=== PATIENT | female | born 1960 | race Caucasian/White ===

== ENCOUNTER 2017-02-21 10:04 | Emergency (ER) | payer SELFPAY ==
[~2017-02-21] VITALS: Ht 157.5 cm; Wt 57.0 kg
[~2017-02-21 10:04] MED LIST: PENI500T PO; TYLE3 PO; Z.0.NO CURRENT MEDS
[2017-02-21 10:06] VITALS: BP 130/69; PULSE 62; RESP 14; TEMP 99.1; O2SAT 100
--- NOTE | 2017-02-21 10:23 | PD ---
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 History of rotator cuff injury. Denies paresthesias, loss to the affected extremity. Reports decreased range of motion secondary to pain. Denies fever, vomiting. Been taking Tylenol for symptom management. Rates pain 7/10. Describes it as an aching, throbbing sensation. Worse with movement. Better while at rest. Denies significant past medical history. No primary care provider no known allergies. Has no other medical complaints. No other modifying factors or associated signs and symptoms. PFSH Past Medical History Depression: Yes Diminished Hearing: No Musculoskeletal: Yes (hx of shoulder injury) ?: Not Menopausal: Yes Past Surgical History Section: Yes Tonsillectomy: Yes Social History Alcohol Use: No Tobacco Use: No Substance Use: No Allergies-Medications (Allergen,Severity, Reaction): Coded Allergies: No Known Allergies (Verified Adverse Reaction, Unknown, 02/21/17) Reported Meds & Prescriptions Reported Meds & Active Scripts Active Ibuprofen 800 Mg Tab 800 Mg PO Q6HR PRN Robaxin (Methocarbamol) 500 Mg Tab 500 Mg PO QID PRN Review of Systems Except as stated in HPI: all other systems reviewed are Neg Physical Exam Narrative GENERAL: Well-nourished, well-developed patient, in no acute distress SKIN: Warm and dry. HEAD: Atraumatic. Normocephalic. EYES: Pupils equal and round. No scleral icterus. No injection or drainage. ENT: Mucosa pink and moist. Airway patent. NECK: Supple. Trachea midline. CARDIOVASCULAR: Regular rate. RESPIRATORY: No accessory muscle use. GASTROINTESTINAL: Flat. MUSCULOSKELETAL: No obvious deformities. No clubbing. No cyanosis. No edema. Right shoulder with limited range of motion; with approximately 45 abduction; right shoulder with no obvious deformities; shoulders equal; without erythema, edema, ecchymosis; with tenderness on palpation to the posterior, anterior aspect; decreased digital art director strength Right upper extremity supple and non-tense. 2 + radial pulse and sensory intact. NEUROLOGICAL: Awake and alert. Oriented 3. No obvious cranial nerve deficits. Motor grossly within normal limits. Normal speech. PSYCHIATRIC: Appropriate mood and affect; insight and judgment normal. Data Data Last Documented VS Vital Signs Date Time Temp Pulse Resp B/P (MAP) Pulse Ox O2 Delivery O2 Flow Rate FiO2 02/21/17 10:06 99.1 62 14 130/69 (89) 100 Room Air Orders Orders Ketorolac Inj (Toradol Inj) (02/21/17 10:30) Orphenadrine Inj (Norflex Inj) (02/21/17 10:30) Shoulder, Complete (>2vws) (02/21/17 10:19) [facility] Medical Decision Making Medical Screen Exam Complete: Yes Emergency Medical Condition: Yes Medical Record Reviewed: Yes Differential Diagnosis Shoulder strain, rotator cuff tear, ligament tear Narrative Course 56-year-old female with right shoulder injury. History of rotator cuff injury. Toradol and Norflex administered in the ER. Right shoulder x-ray ordered. 1109: Right shoulder x-ray with no acute findings. Discussed x-ray findings with a shunt. Arm sling provided for support. Instructed patient to follow up with orthopedic surgeon as needed. Instructed patient to follow up with primary care provider. Patient verbalizes understanding and agreement with treatment plan. Patient is medically cleared and stable for discharge. Discussed reasons to return to the emergency department. Patient agrees with treatment plan. The patients vital signs are stable and the patient is stable for outpatient follow-up and treatment. Patient discharged home, stable and in no acute distress. Diagnosis Primary Impression: Sprain of shoulder, right Qualified Codes: S43.401A - Unspecified sprain of right shoulder joint, initial encounter Referrals: [facility] Orthopaedic Surgeon Primary Care Physician Patient Instructions: General Instructions, Shoulder Sprain (ED) Additional Instructions: Tylenol or ibuprofen as needed and as directed to reduce pain and inflammation Rest, ice, and compress extremity to decrease pain and inflammation Arm sling for support; do not rely on the arm sling; remove arm sling frequently and move the shoulder joint to avoid frozen shoulder Avoid aggravating activity; increase activity as tolerated Follow-up with primary care provider Follow-up with orthopedic surgeon as needed Return to the emergency department immediately with worsening symptoms Med/Other Pt SpecificInfo: Prescription(s) given Scripts Ibuprofen (Ibuprofen) 800 Mg Tab 800 MG PO Q6HR Y for PAIN, #30 TAB 0 Refills Prov: Lien Salinas 02/21/17 Methocarbamol (Robaxin) 500 Mg Tab 500 MG PO QID Y for MUSCLE SPASM, #30 TAB 0 Refills Prov: Lien Salinas 02/21/17 Disposition: 01 DISCHARGE HOME Condition: Stable Lien Salinas Feb 21, 2017 10:23
[2017-02-21] MEDS ORDERED: KETOROLAC TROMETHAMINE 60 MG/2 ML (IM) VIAL IM ONE (10:30)
[2017-02-21] MEDS ORDERED: ORPHENADRINE INJ 60 MG/2 ML AMP IM ONE (10:30)
[2017-02-21] MEDS ORDERED: IBUP1TAB7 PO (10:37)
[2017-02-21] MEDS ORDERED: ROBA500T PO (10:37)
--- NOTE | 2017-02-21 11:02 | RADRPT ---
EXAM DATE/TIME: 02/21/2017 10:35 [facility] COMPARISON: No previous studies available for comparison. INDICATIONS : Right shoulder pain for one week. Patient states she pulled on something injuring her shoulder. MEDICAL HISTORY : Right rotator cuff injury. SURGICAL HISTORY : None. ENCOUNTER: Initial ACUITY: 1 day PAIN SCORE: 6/10 LOCATION: Right shoulder. FINDINGS: Multiple view examination of the right shoulder demonstrates no evidence of fracture or dislocation. The glenohumeral and acromioclavicular joints are maintained. There is minimal hypertrophic change of the distal clavicle. There is normal range of motion between internal and external rotation. Bony mineralization is normal. CONCLUSION: No acute disease. Marin Nguyen MD on February 21, 2017 at 11:00 Board Certified Radiologist. This report was verified electronically.
== END 2017-02-21 11:42 | disposition home or self-care (01) ==
LOC: NEPD 10:04
DX: S43.401A Unspecified sprain of right shoulder joint, initial encounter (principal); F32.9 Major depressive disorder, single episode, unspecified; X50.9XXA Other and unspecified overexertion or strenuous movements or postures, initial encounter
CPT/HCPCS: 73030; 96372; 99284; J1885; J2360

== ENCOUNTER 2017-04-04 11:26 | Emergency (ER) | payer SELFPAY ==
[~2017-04-04] VITALS: Ht 157.5 cm; Wt 60.0 kg
[~2017-04-04 11:26] MED LIST changes: +IBUP1TAB7 PO; -PENI500T PO; +ROBA500T PO; -TYLE3 PO; -Z.0.NO CURRENT MEDS
[2017-04-04 11:27] VITALS: BP 158/70; PULSE 97; RESP 14; TEMP 98.4; O2SAT 97
[2017-04-04] MEDS ORDERED: KETOROLAC TROMETHAMINE 60 MG/2 ML (IM) VIAL IM ONE (12:00)
--- NOTE | 2017-04-04 12:08 | RADRPT ---
EXAM DATE/TIME: 04/04/2017 12:00 [facility] COMPARISON: No previous studies available for comparison. INDICATIONS : Right upper anterior chest pain, denies injury MEDICAL HISTORY : None. SURGICAL HISTORY : None. ENCOUNTER: Initial ACUITY: 1 month PAIN SCORE: 10/10 LOCATION: Right chest FINDINGS: A single view of the chest demonstrates the lungs to be symmetrically aerated without evidence of mas s, infiltrate or effusion. The cardiomediastinal contours are unremarkable. Osseous structures are intact. CONCLUSION: No acute disease. Charanjit Quiroga MD on April 04, 2017 at 12:05 Board Certified Radiologist. This report was verified electronically.
--- NOTE | 2017-04-04 12:17 | PD ---
HPI Chief Complaint: Pain: Acute or Chronic Time Seen by Provider: 11:42 Travel History International Travel<30 days: No Contact w/Intl Traveler<30days: No Traveled to known affect area: No History of Present Illness HPI 56-year-old female that presents to the ED for evaluation of pain on the right shoulder and breast with swelling of the chest. Per patient she is concerned because she does have a family history of breast cancer and bone cancer in the family. She is concerned that she may be having the same. Patient suffered an injury about a month ago or change in her right shoulder. She was evaluated and she states that she reinjured about a week ago. 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 Per patient she' s not been able to see anybody for this. Per patient she started to get concerned because she started developing swelling and pain on the right side of the chest and her right breast is greater than the left. She is not sure this is related to her to take as she does have a history of a tooth infection that she is supposed to have a root canal but she has not had it done secondary to insurance issues. Denies any abdominal pain. No urinary or bowel movement issues. Pain per patient is 7 out of 10. Has not seen anybody for this. Has not had a mammogram. No allergies to medication. PFSH Past Medical History Depression: Yes Diminished Hearing: No Musculoskeletal: Yes (hx of shoulder injury) ?: Not Menopausal: Yes Past Surgical History Section: Yes Tonsillectomy: Yes Social History Alcohol Use: No Tobacco Use: No Substance Use: No Allergies-Medications (Allergen,Severity, Reaction): Coded Allergies: No Known Allergies (Verified Adverse Reaction, Unknown, 02/21/17) Reported Meds & Prescriptions Reported Meds & Active Scripts Active Diclofenac Sodium DR (Diclofenac Sodium) 75 Mg Tabdr 75 Mg PO BID PRN Ibuprofen 800 Mg Tab 800 Mg PO Q6HR PRN Robaxin (Methocarbamol) 500 Mg Tab 500 Mg PO QID PRN Review of Systems Except as stated in HPI: all other systems reviewed are Neg Physical Exam Narrative GENERAL: SKIN: Warm and dry. Breast exam: The with female nurse present. Patient does appear to have large her right breast on the left. Patient appears to have a small pustule-like lesion to the 9:00 area of the breast. Some induration is noted in the breast that appear to be small and mobile. Mainly around the area of the areola. Some lymphadenopathy noted on the right axilla. No obvious deformity or masses noted on the left breast. HEAD: Atraumatic. Normocephalic. EYES: Pupils equal and round. No scleral icterus. No injection or drainage. ENT: No nasal bleeding or discharge. Mucous membranes pink and moist. Dental: Patient has bad dentition not ago. She does not appear to have any signs of abscesses. She does have a cavity to the right upper second molar which is tender with touch but no sign of induration. NECK: Trachea midline. No JVD. CARDIOVASCULAR: Regular rate and rhythm. RESPIRATORY: No accessory muscle use. Clear to auscultation. Breath sounds equal bilaterally. GASTROINTESTINAL: Abdomen soft, non-tender, nondistended. Hepatic and splenic margins not palpable. MUSCULOSKELETAL: Extremities without clubbing, cyanosis, or edema. No obvious deformities. Pain with range of motion of the shoulder especially with internal and external rotation. Pain with abduction. Patient does have reproducible pain on the right clavicle where patient does appear to have slight soft tissue swelling. No erythema. No masses. NEUROLOGICAL: Awake and alert. No obvious cranial nerve deficits. Motor grossly within normal limits. Five out of 5 muscle strength in the arms and legs. Normal speech. PSYCHIATRIC: Appropriate mood and affect; insight and judgment normal. Data Data Last Documented VS Vital Signs Date Time Temp Pulse Resp B/P (MAP) Pulse Ox O2 Delivery O2 Flow Rate FiO2 04/04/17 11:48 85 18 04/04/17 11:27 98.4 158/70 (99) 97 Orders Orders Chest, Single Ap (04/04/17 11:48) Us Breast Unilateral (04/04/17 ) Ketorolac Inj (Toradol Inj) (04/04/17 12:00) Mandatory Outpatient Referral (04/04/17 13:36) Ed Discharge Order (04/04/17 13:37) [facility] Medical Decision Making Medical Screen Exam Complete: Yes Emergency Medical Condition: Yes Medical Record Reviewed: Yes Interpretation(s) Last Impressions Chest X-Ray 04/04/17 1148 Signed Impressions: Service Date/Time: Tuesday, April 04, 2017 12:00 - CONCLUSION: No acute disease. Charanjit Quiroga MD US negative Differential Diagnosis Chest pain versus breast mass versus chronic pain versus to date versus dentalgia versus muscle strain Narrative Course 56-year-old female that presents to the ED for evaluation of right-sided chest discomfort and swelling. Patient was properly examined and was found to have signs and symptoms of unclear etiology. Does appear to be more muscular in nature especially with a reinjury of the right shoulder. She does have some findings on her right breast which are unclear as to their significance. Patient does have a family history of breast cancer. Chest x-ray and ultrasound will be done to any sign of acute disease requiring emergent treatment. Patient agrees to proceed. Imaging showed no sign of acute disease. Patient was reassured. At this time the recommendation is for outpatient mammogram for better evaluated her breasts complaint. I do not see anything at this time that appears to be causing the symptoms. Patient likely has muscle scleral injury. We'll prescribe patient diclofenac sodium for pain. She was given a mandatory referral to the breast navigator to hopefully get a mammogram.. My attending Dr Robins evaluated patient and agrees with plan. F/u with PCP. See ED if worsening symptoms. On regards to dental complain will treat with amoxicillin to cover for infection and told to follow up with dentist. Diagnosis Primary Impression: Shoulder pain, acute Qualified Codes: M25.511 - Pain in right shoulder Additional Impressions: Breast swelling Dentalgia Patient Instructions: General Instructions Additional Instructions: Take medications as prescribed. Follow-up with PCP. See ED for any worsening symptoms. Apply ice or heat as needed for pain Med/Other Pt SpecificInfo: Prescription(s) given Scripts Diclofenac Sodium (Diclofenac Sodium DR) 75 Mg Tabdr 75 MG PO BID Y for PAIN SCALE 1 TO 10, #20 TAB 0 Refills Prov: Jericho Robins MD 04/04/17 Disposition: 01 DISCHARGE HOME Condition: Stable Saul Hammonds Apr 04, 2017 12:17
--- NOTE | 2017-04-04 12:54 | PD ---
Data Data Last Documented VS Vital Signs Date Time Temp Pulse Resp B/P (MAP) Pulse Ox O2 Delivery O2 Flow Rate FiO2 04/04/17 11:48 85 18 04/04/17 11:27 98.4 158/70 (99) 97 Orders Orders Chest, Single Ap (04/04/17 11:48) Us Breast Unilateral (04/04/17 ) Ketorolac Inj (Toradol Inj) (04/04/17 12:00) MDM Supervised Visit with RAHEEM: Yes Narrative Course The history, exam, and medical decision-making in the associated mid-level provider note were completed with my assistance. I reviewed and agree with the findings presented. I attest that I had a [id number] encounter with the patient on the same day, and personally performed and documented my assessment and findings in the medical record. *My assessment and Findings: 56-year-old woman, presents complaining of left breast fullness times months to a year, associated with some pain. On exam, he reports asymmetry in the breast size but no obvious skin irregularities or evidence of malignancy. No palpable masses in the left breast. Small posterior skin change likely benign. Check ultrasound rule out abscess, x-ray of the chest, patient need outpatient follow- up for mammogram. Some minimal left axillary adenopathy. Jericho Robins MD Apr 04, 2017 12:54
--- NOTE | 2017-04-04 13:33 | RADRPT ---
EXAM DATE/TIME: 04/04/2017 13:15 [facility] COMPARISON: No previous studies available for comparison. INDICATIONS : Abscess. MEDICAL HISTORY : Shoulder injury. Depression. SURGICAL HISTORY : Tonsillectomy. section. ENCOUNTER: Initial ACUITY: 4-6 days PAIN SCORE: 10/10 LOCATION: Right breast. FINDINGS: Imaging of the right breast is performed remotely by the clinical technologist. Imaging performed i n the area of pain identified at the 9: 00 position 4 cm from the nipple through the 12:00 position of the breast 4 cm from the nipple demons trates normal-appearing fibroglandular tissue and normal adjacent fatty lobules. No evidence of mass or architectural distortion. The vascularity appears normal. CONCLUSION: No evidence of abscess or abnormal mass. Recommend further evaluation with mammography given the reggie ent's age.. Teresa Reynolds MD on April 04, 2017 at 13:29 Board Certified Radiologist. This report was verified electronically.
[2017-04-04] MEDS ORDERED: DICL75TA PO (13:37)
[2017-04-04] MEDS ORDERED: AMOX875T PO (13:41)
== END 2017-04-04 13:52 | disposition home or self-care (01) ==
LOC: NEPE 11:26
DX: M25.511 Pain in right shoulder (principal); N63.0 Unspecified lump in unspecified breast; K08.89 Other specified disorders of teeth and supporting structures; F32.9 Major depressive disorder, single episode, unspecified; Z80.3 Family history of malignant neoplasm of breast
CPT/HCPCS: 71045; 76642; 96372; 99284; J1885

== ENCOUNTER 2017-04-20 11:23 | Emergency (ER) | payer SELFPAY ==
[~2017-04-20 11:23] MED LIST changes: +AMOX875T PO; +DICL75TA PO
[2017-04-20 12:04] VITALS: BP 146/79; PULSE 91; RESP 14; TEMP 98.4; O2SAT 99
[2017-04-20] MEDS ORDERED: SODIUM CHLOR 0.9% 1000 ML INJ 1,000 ML IV SCH (13:08)
[2017-04-20] MEDS ORDERED: KETOROLAC TROMETHAMINE 30 MG/ML (IVP) VIAL IVP ONE (13:15)
[2017-04-20] MEDS ORDERED: SODIUM CHLORIDE 0.9% FLUSH 10 ML FLUSH IV FLUSH PRN (13:15)
[2017-04-20] MEDS ORDERED: MORPHINE SULFATE 4 MG/ML INJ IV PUSH ONE (13:15)
[2017-04-20 13:50] LABS: AUTOMATED NEUTROPHIL # 5.2 TH/MM3 (1.8-7.7); BASOPHIL % 0.4 % (0.0-2.0); EOSINOPHIL # 0.3 TH/MM3 (0-0.4); HEMATOCRIT 36.8 % (35.0-46.0); HEMOGLOBIN 12.6 GM/DL (11.6-15.3); LYMPHOCYTE # 1.9 TH/MM3 (1.0-4.8); MEAN CELL VOLUME 82.3 FL (80.0-100.0); MEAN CORPUSCULAR HEMOGLOBIN 28.1 PG (27.0-34.0); MEAN CORPUSCULAR HGB CONC 34.1 % (32.0-36.0); MEAN PLATELET VOLUME 9.1 FL (7.0-11.0); MONO % 7.9 % (0.0-8.0); MONOCYTE # 0.6 TH/MM3 (0-0.9); NEUT % 64.7 % (16.0-70.0); PLATELET COUNT 222 TH/MM3 (150-450); RED BLOOD COUNT 4.47 MIL/MM3 (4.00-5.30); RED CELL DISTRIBUTION WIDTH 13.5 % (11.6-17.2); WHITE BLOOD COUNT 8.1 TH/MM3 (4.0-11.0)
[2017-04-20 13:59] LABS: ALBUMIN 3.7 GM/DL (3.4-5.0); AST (GOT) 21 U/L (15-37); BICARBONATE 27.2 MEQ/L (21.0-32.0); BLOOD UREA NITROGEN 10 MG/DL (7-18); CHLORIDE 109 MEQ/L (98-107); CREATININE 0.65 MG/DL (0.50-1.00); GLOMERULAR FILTRATION RATE 95 ML/MIN (>89); GLUCOSE,RANDOM 83 MG/DL (74-106); SODIUM (NA) 142 MEQ/L (136-145)
[2017-04-20 14:01] VITALS: O2SAT 97
--- NOTE | 2017-04-20 14:01 | PD ---
HPI Chief Complaint: Pain: Acute or Chronic Time Seen by Provider: 12:52 Travel History International Travel<30 days: No Contact w/Intl Traveler<30days: No Traveled to known affect area: No History of Present Illness HPI 56-year-old female presents the emergency department with ongoing and worsening anterior chest and breast discomfort for the past 3 weeks. Patient was previously seen on 04 April, with ultrasound performed of the right breast showing no obvious findings of cellulitis or mastitis. Patient was referred out for mammogram with a mandatory referral. Patient reports that this did not happen. Patient was treated with Augmentin and diclofenac without improvement. Patient returns today complaining of pain in the right breast radiating into her anterior neck and left chest. There is no obvious rash or wounds. She states it is worse with palpation and movement. She feels the proximal clavicle on the right side seem swollen. She complains of pain radiating into the anterior neck. She denies difficulty swallowing or breathing. She denies fever, chills, cough, shortness of breath, or abdominal pain. Patient denies pain in the axilla but complains of right shoulder pain. Pain currently is 9 out of 10. She has no local physician and no known drug allergies. Patient reports a family history of breast cancer PFSH Past Medical History Depression: Yes Diminished Hearing: No Musculoskeletal: Yes (hx of shoulder injury) ?: Unknown Menopausal: Yes Past Surgical History Section: Yes Tonsillectomy: Yes Social History Alcohol Use: No Tobacco Use: No Substance Use: No Allergies-Medications (Allergen,Severity, Reaction): Coded Allergies: No Known Allergies (Verified Adverse Reaction, Unknown, 04/20/17) Reported Meds & Prescriptions Reported Meds & Active Scripts Active Amoxicillin 875 Mg Tab 875 Mg PO BID [address] (Diclofenac Sodium) 75 Mg Tabdr 75 Mg PO BID PRN Ibuprofen 800 Mg Tab 800 Mg PO Q6HR PRN Robaxin (Methocarbamol) 500 Mg Tab 500 Mg PO QID PRN Review of Systems Except as stated in HPI: all other systems reviewed are Neg General / Constitutional: No: Fever, Chills Eyes: No: Visual changes HENT: No: Headaches Cardiovascular: Positive: Chest Pain or Discomfort (See history of present illness/chest wall in nature) Respiratory: No: Shortness of Breath Gastrointestinal: No: Abdominal Pain Genitourinary: No: Dysuria Musculoskeletal: Positive: Myalgias, No: Arthralgias, Limited ROM, Weakness, Cramping, Edema, Pain Skin: Positive Breast Tenderness, Positive Other (Patient reports clear drainage from the left breast.), No Rash, No Itching, No Dryness, No Lumps, No Hives, No Change in Pigmentation, No Change in nails, No Alopecia, No Lesions, No Breast Lumps, No Breast Swelling Neurologic: No: Weakness Psychiatric: No: Depression Endocrine: No: Polydipsia Hematologic/Lymphatic: No: Easy Bruising Physical Exam Narrative GENERAL: Patient appears anxious and in mild to moderate distress SKIN: Warm and dry. Normal color. Normal turgor. There is no rash. HEAD: Atraumatic. Normocephalic. EYES: Pupils equal and round. No scleral icterus. No injection or drainage. ENT: No nasal bleeding or discharge. Mucous membranes pink and moist. NECK: Trachea midline. No JVD. CARDIOVASCULAR: Regular rate and rhythm. BREAST: Breast exam shows no palpable masses, dimpling, or expressible discharge from the nipple. There is no increased tenderness in either axilla. Patient does however complain of pain with exam. This exam is performed in the presence of nursing staff. RESPIRATORY: No accessory muscle use. Clear to auscultation. Breath sounds equal bilaterally. Patient has anterior chest discomfort with palpation along the medial clavicle and breastbone. GASTROINTESTINAL: Abdomen soft, non-tender, nondistended. Hepatic and splenic margins not palpable. MUSCULOSKELETAL: Extremities without clubbing, cyanosis, or edema. No obvious deformities. NEUROLOGICAL: Awake and alert. No obvious cranial nerve deficits. Motor grossly within normal limits. Five out of 5 muscle strength in the arms and legs. Normal speech. PSYCHIATRIC: Appropriate mood and affect; insight and judgment normal. Data Data Last Documented VS Vital Signs Date Time Temp Pulse Resp B/P (MAP) Pulse Ox O2 Delivery O2 Flow Rate FiO2 04/20/17 14:01 97 Room Air 04/20/17 12:04 98.4 91 14 146/79 (101) Orders Orders Complete Blood Count With Diff (04/20/17 13:08) Comprehensive Metabolic Panel (04/20/17 13:08) Lipase (04/20/17 13:08) Iv Access Insert/Monitor (04/20/17 13:08) Ecg Monitoring (04/20/17 13:08) Oximetry (04/20/17 13:08) Morphine Inj (Morphine Inj) (04/20/17 13:15) Sodium Chlor 0.9% 1000 Ml Inj (Ns 1000 M (04/20/17 13:08) Sodium Chloride 0.9% Flush (Ns Flush) (04/20/17 13:15) Electrocardiogram (04/20/17 13:08) Chest, Single Ap (04/20/17 13:08) Ketorolac Inj (Toradol Inj) (04/20/17 13:15) Ct Thorax/ Chest W Iv Contrast (04/20/17 13:08) Iohexol 350 Inj (Omnipaque 350 Inj) (04/20/17 14:46) Labs Laboratory Tests Test 04/20/17 13:20 White Blood Count 8.1 TH/MM3 Red Blood Count 4.47 MIL/MM3 Hemoglobin 12.6 GM/DL Hematocrit 36.8 % Mean Corpuscular Volume 82.3 FL Mean Corpuscular Hemoglobin 28.1 PG Mean Corpuscular Hemoglobin Concent 34.1 % Red Cell Distribution Width 13.5 % Platelet Count 222 TH/MM3 Mean Platelet Volume 9.1 FL Neutrophils (%) (Auto) 64.7 % Lymphocytes (%) (Auto) 23.0 % Monocytes (%) (Auto) 7.9 % Eosinophils (%) (Auto) 4.0 % Basophils (%) (Auto) 0.4 % Neutrophils # (Auto) 5.2 TH/MM3 Lymphocytes # (Auto) 1.9 TH/MM3 Monocytes # (Auto) 0.6 TH/MM3 Eosinophils # (Auto) 0.3 TH/MM3 Basophils # (Auto) 0.0 TH/MM3 CBC Comment DIFF FINAL Differential Comment Blood Urea Nitrogen 10 MG/DL Creatinine 0.65 MG/DL Random Glucose 83 MG/DL Total Protein 6.9 GM/DL Albumin 3.7 GM/DL Calcium Level 9.0 MG/DL Alkaline Phosphatase 73 U/L Aspartate Amino Transf (AST/SGOT) 21 U/L Alanine Aminotransferase (ALT/SGPT) 17 U/L Total Bilirubin 0.4 MG/DL Sodium Level 142 MEQ/L Potassium Level 3.4 MEQ/L Chloride Level 109 MEQ/L Carbon Dioxide Level 27.2 MEQ/L Anion Gap 6 MEQ/L Estimat Glomerular Filtration Rate 95 ML/MIN Lipase 104 U/L MDM Medical Decision Making Medical Screen Exam Complete: Yes Emergency Medical Condition: Yes Medical Record Reviewed: Yes Differential Diagnosis Chest wall pain. Breast pain. Costochondritis. Breast CA. PE. Anxiety. Metastatic disease. Narrative Course Patient appears medically stable at time of exam. Labs ordered including CBC, CMP, and lipase. EKG is ordered. Chest x-ray is ordered as well as CT of the chest with IV contrast. Patient was discussed with Dr. Miranda who agrees with this plan. IV access is obtained the patient is given 2 mg morphine IV as well as 30 mg ketorolac IV. Patient is given 1000 mL's normal saline bolus. CBC is unremarkable. CMP shows potassium 3.4, chloride is 109, otherwise no significant findings. Lipase was 104. EKG shows sinus rhythm with possible left atrial enlargement otherwise no significant findings. Chest x-ray is unremarkable for acute findings per radiologist. CT scan shows bilateral atelectasis but no other acute process noted that would explain the patient's symptoms per radiology. Patient is felt to have costochondritis, and chest wall pain. Patient is treated with ibuprofen 800 mg 3 times daily with food #30 Patient also given Flexeril 10 mg up to 3 times daily as needed #15 Patient is referred to [facility] for further evaluation and treatment. Diagnosis Primary Impression: Chest wall pain Referrals: [facility] Patient Instructions: Chest Wall Pain (ED), General Instructions Additional Instructions: CBC is unremarkable. CMP shows potassium 3.4, chloride is 109, otherwise no significant findings. Lipase was 104. EKG shows sinus rhythm with possible left atrial enlargement otherwise no significant findings. Chest x-ray is unremarkable for acute findings per radiologist. CT scan shows bilateral atelectasis but no other acute process noted that would explain the patient's symptoms per radiology. Patient is felt to have costochondritis, and chest wall pain. Patient is treated with ibuprofen 800 mg 3 times daily with food #30 Patient also given Flexeril 10 mg up to 3 times daily as needed #15 Patient is referred to [facility] for further evaluation and treatment. Med/Other Pt SpecificInfo: Prescription(s) given Disposition: 01 DISCHARGE HOME Condition: Stable Jeancarlos Chowdary Apr 20, 2017 14:01
[2017-04-20 14:03] LABS: ALKALINE PHOSPHATASE 73 U/L (45-117); ALT (GPT) 17 U/L (10-53); TOTAL BILIRUBIN ADULT 0.4 MG/DL (0.2-1.0); TOTAL PROTEIN 6.9 GM/DL (6.4-8.2)
--- NOTE | 2017-04-20 14:20 | RADRPT ---
EXAM DATE/TIME: 04/20/2017 13:53 [facility] COMPARISON: CHEST SINGLE AP, April 04, 2017, 12:00. INDICATIONS : Chest pain. MEDICAL HISTORY : None. SURGICAL HISTORY : Tonsillectomy. ENCOUNTER: Initial ACUITY: 1 week PAIN SCORE: 10/10 LOCATION: Bilateral upper chest FINDINGS: A single view of the chest demonstrates the lungs to be symmetrically aerated without evidence of mas s, infiltrate or effusion. The cardiomediastinal contours are unremarkable. Osseous structures are intact. CONCLUSION: No acute disease. Eddie Ariza MD on April 20, 2017 at 14:19 Board Certified Radiologist. This report was verified electronically.
[2017-04-20] MEDS ORDERED: IOHEXOL 350 MG/ML 10 ML VIAL (for RAD DIAG) IVCONTRAST ONE (14:46)
--- NOTE | 2017-04-20 15:00 | RADRPT ---
EXAM DATE/TIME: 04/20/2017 14:41 [facility] COMPARISON: No previous studies available for comparison. INDICATIONS : Right chest wall and breast pain. IV CONTRAST: 70 cc Omnipaque 350 (iohexol) IV RADIATION DOSE: 7.36 CTDIvol (mGy) MEDICAL HISTORY : None SURGICAL HISTORY : section. ENCOUNTER: Initial ACUITY: 3 weeks PAIN SCALE: 9/10 LOCATION: Right chest TECHNIQUE: Volumetric scanning of the chest was performed. Using automated exposure control and adjustment of t he mA and/or kV according to patient size, radiation dose was kept as low as reasonably achievable to obtain optimal diagnostic quality images. DICOM format image data is available electronically for review and comparison. Follow-up recommendations for detected pulmonary nodules are based at a minimum on nodule size and pa tient risk factors according to Fleischner Society Guidelines. FINDINGS: LUNGS: There is no consolidation or pneumothorax. No concerning pulmonary nodule is visualized. Minimal den sities lower lobes. PLEURA: There is no pleural thickening or pleural effusion. MEDIASTINUM: The heart and great vessels demonstrate no acute abnormality. There is no mediastinal or hilar lymph adenopathy. AXILLAE: Within normal limits. No lymphadenopathy. SKELETAL: Within normal limits for patient age. MISCELLANEOUS: The visualized upper abdominal organs demonstrate no acute abnormality. CONCLUSION: 1. Bibasilar atelectasis. 2. No acute thoracic process. 3. No consolidation or pleural effusion. Eddie Ariza MD on April 20, 2017 at 14:56 Board Certified Radiologist. This report was verified electronically.
[2017-04-20] MEDS ORDERED: IBUP1TAB7 PO (15:06)
[2017-04-20] MEDS ORDERED: CYCL10TA PO (15:06)
--- NOTE | 2017-04-21 11:31 | EKG ---
Date Performed: 04/20/2017 Time Performed: 13:28:01 PTAGE: 56 years EKG: Sinus rhythm POSSIBLE LEFT ATRIAL ENLARGEMENT BORDERLINE ECG NO PREVIOUS TRACING DOCTOR: Tomi Cardenas Interpretating Date/Time 04/21/2017 11:28:20
== END 2017-04-20 15:40 | disposition home or self-care (01) ==
LOC: NEPD 11:23
DX: R07.89 Other chest pain (principal); M94.0 Chondrocostal junction syndrome [Tietze]; J98.11 Atelectasis; F32.9 Major depressive disorder, single episode, unspecified; Z79.899 Other long term (current) drug therapy
CPT/HCPCS: 71045; 71260; 80053; 83690; 85025; 93005; 96361; 96374; 96375; 99285; J1885; J2270; J7030; Q9967

== ENCOUNTER 2017-07-23 13:35 | Emergency (ER) | payer SELFPAY ==
[~2017-07-23] VITALS: Ht 160 cm; Wt 60.0 kg
[~2017-07-23 13:35] MED LIST changes: +CYCL10TA PO
[2017-07-23 13:46] VITALS: BP 137/69; PULSE 87; RESP 20; TEMP 99.4; O2SAT 98
[2017-07-23] MEDS ORDERED: KETOROLAC TROMETHAMINE 60 MG/2 ML (IM) VIAL IM ONE (14:30)
[2017-07-23] MEDS ORDERED: methylPREDNISolone SOD SUCC 125 MG/2 ML VIAL IM ONE (14:30)
--- NOTE | 2017-07-23 14:37 | PD ---
HPI Chief Complaint: Pain: Acute or Chronic Time Seen by Provider: 14:08 Travel History International Travel<30 days: No Contact w/Intl Traveler<30days: No Traveled to known affect area: No History of Present Illness HPI This is a 57-year-old female with history of chronic right shoulder pain, presents today with complaints of right shoulder pain. Patient states that she has been seen multiple times for clavicle and shoulder pain. She states she has had multiple x-rays including MRIs do show nothing. The patient reports it is constant. She reports that sharp. She reports that in her clavicle and shoulder area. There is no recent injury. She did have a work-related injury at [facility] which resulted in a right shoulder injury. She is not sure whether not this is the same pain she had when she initially injured it. There is no weakness or numbness of tingling. She reports when she tries to lift her shoulder above 90, it hurts more. She states she essentially just does not like to move her shoulder. PFSH Past Medical History Depression: Yes Diminished Hearing: No Musculoskeletal: Yes (hx of shoulder injury) Tetanus Vaccination: Unknown Influenza Vaccination: No ?: Not Menopausal: Yes Past Surgical History Section: Yes Tonsillectomy: Yes Other Surgery: Yes (colposcopy) Social History Alcohol Use: No Tobacco Use: No Substance Use: No Allergies-Medications (Allergen,Severity, Reaction): Coded Allergies: No Known Allergies (Verified Adverse Reaction, Unknown, 04/20/17) Reported Meds & Prescriptions Reported Meds & Active Scripts Active No Active Prescriptions or Reported Medications Review of Systems Except as stated in HPI: all other systems reviewed are Neg General / Constitutional: No: Fever, Chills HENT: No: Headaches, Neck Pain Cardiovascular: No: Chest Pain or Discomfort, Palpitations Respiratory: No: Cough, Shortness of Breath Gastrointestinal: No: Nausea, Vomiting, Abdominal Pain Musculoskeletal: Positive: Limited ROM (Secondary to pain), Pain (Right shoulder and right clavicle), No: Weakness, Edema Skin: No Rash, No Lesions Neurologic: No: Weakness, Headache, Change in Mentation Physical Exam Narrative GENERAL: Well-nourished, well-developed patient crying when I entered the room. SKIN: Focused skin assessment warm/dry. HEAD: Normocephalic/atraumatic. EYES: No scleral icterus. No injection or drainage. NECK: Supple, trachea midline. No JVD or lymphadenopathy. CARDIOVASCULAR: Regular rate and rhythm without murmurs, gallops, or rubs. RESPIRATORY: Breath sounds equal bilaterally. No accessory muscle use. GASTROINTESTINAL: Abdomen soft, non-tender, nondistended. MUSCULOSKELETAL: On examination patient's right shoulder, she had tenderness at the AC joint. There was no deformity. The patient had tenderness along the entire clavicle. On ranging of her right shoulder, she had pain elicited in her AC joint at 90. There is no instability. There was no notable rash. NEUROLOGICAL: Awake and alert. Cranial nerves II through XII intact. Motor and sensory grossly within normal limits. Five out of 5 muscle strength in all muscle groups. Normal speech. Data Data Last Documented VS Vital Signs Date Time Temp Pulse Resp B/P (MAP) Pulse Ox O2 Delivery O2 Flow Rate FiO2 07/23/17 13:46 99.4 87 20 137/69 (91) 98 Orders Orders Methylprednisolone So Succ Inj (Solumedr (07/23/17 14:30) Ketorolac Inj (Toradol Inj) (07/23/17 14:30) Sling And Swathe (07/23/17 ) Mandatory Outpatient Referral (07/23/17 14:29) Ed Discharge Order (07/23/17 16:39) MDM Medical Decision Making Medical Screen Exam Complete: Yes Emergency Medical Condition: Yes Differential Diagnosis Rotator cuff injury versus AC joint injury versus nonspecific bone pain. Narrative Course 57-year-old female presents with chronic right shoulder pain. Patient states she has had it since January. She has had multiple x-rays and even an MRI that of all showed no evidence of acute process. I discussed with her that I would hold off on ordering an x-ray. We will place her in a shoulder sling and swath. She will be given a Toradol injection as well as Solu-Medrol injection. She will be discharged with a Medrol Dosepak and Arthrotec prescription. He will be a mandatory referral placed for orthopedics. Diagnosis Primary Impression: Chronic right shoulder and clavicle pain Additional Instructions: A mandatory referral for an orthopedic physician will be placed. Keep arm is immobilized in sling and swath during the day. Med/Other Pt SpecificInfo: Prescription(s) given Scripts No Active Prescriptions or Reported Meds Disposition: 01 DISCHARGE HOME Condition: Stable Shaun Bautista MD Jul 23, 2017 14:37
[2017-07-23 17:00] VITALS: BP 148/73
== END 2017-07-23 17:07 | disposition home or self-care (01) ==
LOC: NEPE 13:35
DX: M25.511 Pain in right shoulder (principal); G89.29 Other chronic pain; F32.9 Major depressive disorder, single episode, unspecified
CPT/HCPCS: 29240; 96372; 99283; J1885; J2930